=== PATIENT | female | born 1950 | race Caucasian/White ===

== ENCOUNTER → 2017-04-02 | Outpatient (CLI) | payer BC ==
[~2017-04-02] MED LIST: GADAVIST IV PRN
--- NOTE | 2017-04-02 08:54 | DIAGNOSTIC IMAGING REPORT ---
ADDENDUM Addendum: Outside MRI dated 07/21/2013 has been retrieved. The pancreatic head lesion measured 17 mm in maximal diameter on that outside study. IMPRESSION: Interval enlargement in the T2 bright 2.9 cm pancreatic head cystic mass. Imaging characteristics are suggestive of a serous cystadenoma. The mass previously measured 1.7 cm in July 2013. Given the interval growth, if desired, endoscopic ultrasound and biopsy could be obtained in follow-up for tissue confirmation. Electronically signed by: Levy Hermosillo M.D. 04/04/2017 2:20 PM Dictated Date/Time: 04/04/2017 2:15 PM ORIGINAL REPORT MRI ABDOMEN COMBO CLINICAL HISTORY: PANCREATIC CYST TECHNIQUE: Imaging was performed prior to and following IV contrast injection. The patient was injected with 6 cc of intravenous Gadavist COMPARISON STUDY: No previous studies for comparison. FINDINGS: There are 2 T2 bright lesions within the right hepatic lobe, both of which measure 9 mm. These demonstrate nodular peripheral enhancement and likely represent hepatic hemangiomas. There is no intra or extrahepatic biliary ductal dilatation. The common buttock measures 5 mm. No splenic masses are visualized. No gallbladder abnormalities are visualized. There are bilateral T2 bright renal lesions consistent with cysts. Addition there is an 8 mm T2 hypointense lesion which lacks contrast-enhancement. This may represent a proteinaceous cyst. There is a lobulated T2 bright 2.9 cm mass within the pancreatic head. This appears to represent a microcystic lesion with enhancing septa. Given the age of the patient and appearance of this lesion, this likely represents a serous cystadenoma. There is no evidence of abdominal aortic dilatation. There are no adrenal masses. IMPRESSION: 1. Subcentimeter simple and proteinaceous renal cysts 2. Subcentimeter T2 bright hepatic lesions consistent with hemangiomas 3. Lobulated T2 bright 2.9 cm mass in the pancreatic head. This appears microcystic with enhancing septa. This likely represents a serous cystadenoma. By history, the patient has undergone prior imaging at [facility]. Correlation with that report is recommended to exclude interval growth. This institution has requested the patient's prior MRIs. Electronically signed by: Levy eHrmosillo M.D. 04/02/2017 8:53 AM Dictated Date/Time: 04/02/2017 8:33 AM
== END | disposition home or self-care (01) ==
LOC: C.MRI 07:18
PROVIDERS: ATTEND Nurse Practitioner Family
DX: K86.2 Cyst of pancreas (principal)

== ENCOUNTER → 2017-05-05 | Outpatient (CLI) | payer BC | END | disposition home or self-care (01) | LOC: C.MAMM 08:48 | PROVIDERS: ATTEND Nurse Practitioner Family | DX: M81.0 Age-related osteoporosis without current pathological fracture (principal) ==

== ENCOUNTER → 2017-06-24 | Day surgery (SDC) | payer BC ==
[2017-06-19 07:22] VITALS: BMI 23.0
[~2017-06-24] VITALS: Ht 166.4 cm; Wt 63.6 kg
[~2017-06-24] MED LIST changes: +ATOR10TA82 PO; +ATROPINE SULFATE 0.1 MG/ML 5ML SYR IV PRN; +CHOL100010 PO; +CIPROFLOXACIN 400MG / 200ML D5W ONE; +CONJ0.3T3 PO; +DEXAMETHASONE SOD INJ 4 MG/ML VIAL ONE; +EpHEDrine SULFATE INJ 50 MG/ML AMP IV PRN; +FENTANYL CITRATE INJ 50 MCG/1 ML 2 ML VIAL IV PRN; +FENTANYL CITRATE INJ 50 MCG/1 ML 2 ML VIAL ONE; +FLUMAZENIL 0.1 MG/1 ML 10 ML VIAL IV PRN; -GADAVIST IV PRN; +LABETALOL HCL IV 5 MG/ML 20ML IV PRN; +LACTATED RINGER'S 1000ML 1,000 ML IV SCH; +LIDOCAINE HCL 2% 2 ML VIAL (20MG/ML) ONE; +MIDAZOLAM HCL 1 MG/ML 2ML VIAL ONE; +NALOXONE HCL 0.4 MG/1 ML VIAL/CARP IV PRN; +ONDANSETRON INJ 2 MG/ML 2 ML VIAL IV PRN; +ONDANSETRON INJ 2 MG/ML 2 ML VIAL ONE; +PROMETHAZINE HCL INJ 12.5 MG in SODIUM CHLORIDE 0.9% 50ML 50 ML IV PRN; +PROPOFOL IV EMULSION 10 MG/ML 20 ML VIAL IV ONE; +RISE150T PO; +SODIUM CHLORIDE 0.9% 500ML 500 ML IV ONE; +SUCCINYLCHOLINE CHLORIDE 20 MG/ML 10 ML VIAL IV ONE; +ZONI100C39 PO
[2017-06-24 12:42] VITALS: BP 145/65; PULSE 84; TEMP 36.6; O2SAT 98; Ht 166.4 cm; Wt 63.6 kg
[2017-06-24 13:05] LABS: HEMATOCRIT 38.1 % (37-47); MEAN CELL VOLUME 89.4 fL (80-100); MEAN CORPUSCULAR HEMOGLOBIN 30.5 pg (25-34); MEAN PLATELET VOLUME 9.3 fL (7.4-10.4); PLATELET COUNT 295 K/uL (130-400); RED CELL DISTRIBUTION WIDTH SD 42.3 fL (36.4-46.3); WHITE BLOOD COUNT 5.88 K/uL (4.8-10.8)
[2017-06-24 13:10] LABS: MEAN CORPUSCULAR HGB CONC 34.1 g/dl (32-36)
[2017-06-24 13:31] LABS: CREATININE 1.02 mg/dl (0.60-1.20); POTASSIUM 3.5 mmol/L (3.5-5.1)
--- NOTE | 2017-06-24 13:57 | Endo History and Physical ---
History & Physical Date of Service: Jun 24, 2017. Chief Complaint: pancreatic cyst Referring Physician: History of Present Illness pancreatic cyst Past Surgical History Hx Cardiac Surgery: No Hx Abdominal Surgery: Yes (LAPRASCOPY WITH RIGHT- SALPINECTOMY (TUBAL PREG)) Hx Post-Op Nausea and Vomiting: No Hx Cancer Surgery: No Hx Thoracic Surgery: No Hx Orthopedic: Yes (ANKLE FATTY TUMOR REMOVED, RIGHT SHOULDER ARTHROSCOPY) Hx Urinary Tract Surgery: No Social History Smoking Status: Never Smoker Hx Substance Use: No Hx Alcohol Use: Yes (SOCIALLY) Allergies Coded Allergies: No Known Allergies (Unverified , 06/19/17) Current Medications Reported Home Medications Medications Dose Route/Sig Max Daily Dose Days Date Category Actonel (Risedronate Sodium) 150 Mg Tab 150 Mg PO MONTHLY 06/19/17 Reported Vitamin D (Cholecalciferol) 1,000 Unit Tab 1,000 Units PO QAM 06/19/17 Reported Lipitor (Atorvastatin Calcium) 10 Mg Tab 10 Mg PO QPM 06/19/17 Reported Prempro 0.3MG/1.5MG (Estrogens Conj/Medroxyprogest Acet) Tab 1 Tab PO Q2D 06/19/17 Reported Zonegran (Zonisamide) 100 Mg Cap 200 Mg PO BID 06/19/17 Reported Vital Signs Weight (Kilograms): 63.64 Height (Feet): 5 Height (Inches): 5.5 Date Time Temp Pulse Resp B/P (MAP) Pulse Ox O2 Delivery O2 Flow Rate FiO2 06/24/17 12:42 36.6 84 16 145/65 (91) 98 Room Air Physical Exam General Appearance: WD/WN, no apparent distress Respiratory/Chest: Auscultation: breath sounds normal Cardiovascular: Heart Auscultation: RRR Abdomen: Bowel Sounds: normal Inspection & Palpation: soft, non-distended, no tenderness, guarding & rebound Assessment and Plan EUS with FNA as necessary
--- NOTE | 2017-06-24 15:56 | Discharge Instructions ---
Endoscopy Patient Instructions Date / Procedure(s) Performed Jun 24, 2017. Other Allergy Information Coded Allergies: No Known Allergies (Unverified , 06/19/17) Discharge Date / Findings Jun 24, 2017. small GB polyp serous cyst with FNA Medication Instructions Restart Stopped Medication(s): Reported Home Medications Medications Dose Route/Sig Max Daily Dose Days Date Category Actonel (Risedronate Sodium) 150 Mg Tab 150 Mg PO MONTHLY 06/19/17 Reported Vitamin D (Cholecalciferol) 1,000 Unit Tab 1,000 Units PO QAM 06/19/17 Reported Lipitor (Atorvastatin Calcium) 10 Mg Tab 10 Mg PO QPM 06/19/17 Reported Prempro 0.3MG/1.5MG (Estrogens Conj/Medroxyprogest Acet) Tab 1 Tab PO Q2D 06/19/17 Reported Zonegran (Zonisamide) 100 Mg Cap 200 Mg PO BID 06/19/17 Reported Cipro 500mg twice daily for 5 days Reported Home Medications Medications Dose Route/Sig Max Daily Dose Days Date Category Actonel (Risedronate Sodium) 150 Mg Tab 150 Mg PO MONTHLY 06/19/17 Reported Vitamin D (Cholecalciferol) 1,000 Unit Tab 1,000 Units PO QAM 06/19/17 Reported Lipitor (Atorvastatin Calcium) 10 Mg Tab 10 Mg PO QPM 06/19/17 Reported Prempro 0.3MG/1.5MG (Estrogens Conj/Medroxyprogest Acet) Tab 1 Tab PO Q2D 06/19/17 Reported Zonegran (Zonisamide) 100 Mg Cap 200 Mg PO BID 06/19/17 Reported Cipro 500mg twice daily for 5 days Provider Instructions Activity Restrictions - No exercising or heavy lifting for 24 hours. - Do not drink alcohol the day of the procedure. - Do not drive a car or operate machinery until the day after the procedure. - Do not make any important decisions or sign important papers in 24 hours after the procedure. Following Day: - Return to full activity which may include returning to work/school. Diet Start your diet with liquids and light foods (jello, soup, juice, toast). Then eat your usual diet if not nauseated. Treatment For Common After Affects For mild abdominal pain, bloating, or excessive gas: - Rest - Eat lightly - Lie on right side Follow-Up Information Follow-up with as scheduled Anesthesia Information What You Should Know You have had a procedure that required some medicine to reduce anxiety and discomfort. This treatment is called moderate sedation. After receiving the treatment, you may be sleepy, but you will be able to breathe on your own. The effects of the treatment may last for several hours. Follow these instructions along with Activity/Diet recommendations noted above: * Do NOT do anything where dizziness or clumsiness would be dangerous. * Rest quietly at home today, then you can be up and about tomorrow. * Have a responsible person stay with you the rest of today. * You may have had an I.V. today. If so, you may take the dressing off later today. Recommendations Call your doctor if: * Trouble breathing * Continuous vomiting for more than 24 hours * Temperature above 101 degrees * Severe abdominal pain or bloating * Pain not relieved by pain medicine ordered * There is increased drainage or redness from any incision * A large amount of rectal bleeding greater than 2-3 tablespoons. (If you had a polyp/s removed or have hemorrhoids, a small amount of blood - from the rectum is to be expected.) * You have any unanswered questions or concerns. IN THE EVENT OF A SERIOUS EMERGENCY, GO TO THE NEAREST EMERGENCY ROOM Your discharge instructions were prepared by provider Chidi Bailey. Patient Instructions Signature Page Mita Méndez Patient (or Guardian) Signature/Date: I have read and understand the instructions given to me by my caregivers. Caregiver/RN/Doctor Signature/Date: The above-named patient and/or guardian has received patient instructions on this date. + Original Patient Signature Page (only) stays with chart. Please make copy for patient.
[2017-06-24 16:35] VITALS: BP 133/63; PULSE 71; TEMP 36.5; O2SAT 100
--- NOTE | 2017-06-24 16:45 | GI REPORT ---
Procedure Date: 06/24/2017 2:14 PM Procedure: Upper EUS Indications: Pancreatic cyst on MRI, prior hx of serous cyst adenoma. Increase in size on recent imaging Medicines: General Anesthesia Complications: No immediate complications. Estimated blood loss: Minimal. Estimated Blood Loss: Estimated blood loss was minimal. Estimated blood loss was minimal. Procedure: Pre-Anesthesia Assessment: - Prior to the procedure, a History and Physical was performed, and patient medications and allergies were reviewed. The patient's tolerance of previous anesthesia was also reviewed. The risks and benefits of the procedure and the sedation options and risks were discussed with the patient. All questions were answered, and informed consent was obtained. Prior Anticoagulants: The patient has taken no previous anticoagulant or antiplatelet agents. ASA Grade Assessment: II - A patient with mild systemic disease. After reviewing the risks and benefits, the patient was deemed in satisfactory condition to undergo the procedure. After obtaining informed consent, the endoscope was passed under direct vision. Throughout the procedure, the patient's blood pressure, pulse, and oxygen saturations were monitored continuously. The Endosonoscope was introduced through the mouth, and advanced to the duodenum for ultrasound examination from the esophagus, stomach and duodenum. The upper EUS was accomplished without difficulty. The patient tolerated the procedure well. Findings: Endoscopic Finding : The examined esophagus was normal. The entire examined stomach was normal. The examined duodenum was normal. The ampulla was normal. Endosonographic Finding : The esophagus, stomach and duodenum and adjacent structures were visualized endosonographically. There was no sign of significant endosonographic abnormality in the esophagus. No pathologic lymphadenopathy was identified. Endosonographic images of the stomach were unremarkable. No pathologic lymphadenopathy was identified. Endosonographic images of the stomach were unremarkable. No pathologic lymphadenopathy was identified. There was no sign of significant endosonographic abnormality in the ampulla. No pathologic lymphadenopathy was identified. A hyperechoic and homogenous polyp was identified endosonographically in the gallbladder body. Endosonographic imaging in the common bile duct and in the gallbladder showed no stones. There was no sign of significant endosonographic abnormality in the visualized portion of the liver. Homogeneous parenchyma, no focal pathology and no pathologic lymphadenopathy were identified. An anechoic, multicystic and distally enhancing lesion suggestive of a cyst was identified in the pancreatic head. It is not in obvious communication with the pancreatic duct. The lesion measured 20 mm by 28 mm in maximal cross-sectional diameter. Within lesion 2 simple cysts with mural defects, the largest is 5-6 mm was identified and a needle placed. Simple needle placement promptly decompressed the cyst with not fluid obtained with suction.There were many compartments. There was no internal debris within the fluid-filled cavity. Fine needle aspiration for cytology was performed of the lesion. Color Doppler imaging was utilized prior to needle puncture to confirm a lack of significant vascular structures within the needle path. Six passes were made with the 22 gauge needle using a transduodenal approach. A stylet was used. A blood bank laboratory professional was present to evaluate the adequacy of the specimen. The cellularity of the specimen was adequate. Final cytology results are pending. No lymphadenopathy seen. There was no sign of significant endosonographic abnormality in the visualized portion of the spleen. No focal pathology was identified. There was no sign of significant endosonographic abnormality in the entire examined left kidney. No focal pathology was identified. Impression: - Normal esophagus. - Normal stomach. - Normal examined duodenum. - Normal ampulla. - There was no sign of significant pathology in the esophagus. - Endosonographic images of the stomach were unremarkable. - There was no sign of significant pathology in the ampulla. - A polyp was found in the gallbladder body. Resection not attempted. - There was no evidence of significant pathology in the visualized portion of the liver. - A cystic lesion was seen in the pancreatic head. Fine needle aspiration performed. This was complex with small cystic areas. - Endosonographic images of the spleen were unremarkable. - Endosonographic images of the left kidney were unremarkable. Recommendation: - Discharge patient to home (ambulatory). - Advance diet as tolerated. - Continue present medications. - Cipro (ciprofloxacin) 500 mg PO BID for 5 days. - Await cytology results. Fluid was not obtained for analysis. - Return to GI clinic as previously scheduled. - Return to referring physician as previously scheduled. MD Chidi Roberts MD 06/24/2017 4:44:42 PM This report has been signed electronically. Note Initiated On: 06/24/2017 2:14 PM I attest to the content of the Intraoperative Record and orders documented therein, exceptions below
--- NOTE | 2017-06-24 16:45 | Anesthesiology Progress Note ---
Anesthesia Post Op Note Date & Time Jun 24, 2017 at 16:45 Vital Signs Pain Intensity: 0 Vital Signs Past 12 Hours Date Time Temp Pulse Resp B/P (MAP) Pulse Ox O2 Delivery O2 Flow Rate FiO2 06/24/17 16:27 70 20 99 06/24/17 16:27 68 20 06/24/17 16:25 36.4 06/24/17 16:25 126/66 06/24/17 16:20 131/70 06/24/17 16:17 63 13 06/24/17 16:17 63 13 99 06/24/17 16:16 67 16 06/24/17 16:16 65 16 119/66 100 06/24/17 16:11 64 14 06/24/17 16:11 64 14 100 06/24/17 16:10 133/68 06/24/17 16:06 73 16 100 06/24/17 16:06 71 16 06/24/17 16:05 124/78 06/24/17 16:01 61 16 100 06/24/17 16:01 61 16 06/24/17 16:00 124/63 06/24/17 15:56 67 15 100 06/24/17 15:56 69 15 06/24/17 15:55 121/63 06/24/17 15:52 127/68 06/24/17 15:51 66 17 100 06/24/17 15:51 88 17 100 06/24/17 15:51 36.0 67 17 127/68 100 Oxymask 10 06/24/17 12:42 36.6 84 16 145/65 (91) 98 Room Air Notes Mental Status: alert / awake / arousable, participated in evaluation Pt Amnestic to Procedure: Yes Nausea / Vomiting: adequately controlled Pain: adequately controlled Airway Patency, RR, SpO2: stable & adequate BP & HR: stable & adequate Hydration State: stable & adequate Anesthetic Complications: no major complications apparent
[2017-06-24 17:05] VITALS: BP 134/65; PULSE 67; TEMP 36.5; O2SAT 100
== END | disposition home or self-care (01) ==
LOC: C.ACU 12:21
PROVIDERS: ATTEND Internal Medicine Gastroenterology
DX: K86.2 Cyst of pancreas (principal); Z98.890 Other specified postprocedural states; E78.5 Hyperlipidemia, unspecified; Z86.69 Personal history of other diseases of the nervous system and sense organs

== ENCOUNTER → 2017-09-04 | Outpatient (CLI) | payer BC ==
[~2017-09-04] MED LIST changes: -ATROPINE SULFATE 0.1 MG/ML 5ML SYR IV PRN; -CIPROFLOXACIN 400MG / 200ML D5W ONE; -DEXAMETHASONE SOD INJ 4 MG/ML VIAL ONE; -EpHEDrine SULFATE INJ 50 MG/ML AMP IV PRN; -FENTANYL CITRATE INJ 50 MCG/1 ML 2 ML VIAL IV PRN; -FENTANYL CITRATE INJ 50 MCG/1 ML 2 ML VIAL ONE; -FLUMAZENIL 0.1 MG/1 ML 10 ML VIAL IV PRN; +GADAVIST IV PRN; -LABETALOL HCL IV 5 MG/ML 20ML IV PRN; -LACTATED RINGER'S 1000ML 1,000 ML IV SCH; -LIDOCAINE HCL 2% 2 ML VIAL (20MG/ML) ONE; -MIDAZOLAM HCL 1 MG/ML 2ML VIAL ONE; -NALOXONE HCL 0.4 MG/1 ML VIAL/CARP IV PRN; -ONDANSETRON INJ 2 MG/ML 2 ML VIAL IV PRN; -ONDANSETRON INJ 2 MG/ML 2 ML VIAL ONE; -PROMETHAZINE HCL INJ 12.5 MG in SODIUM CHLORIDE 0.9% 50ML 50 ML IV PRN; -PROPOFOL IV EMULSION 10 MG/ML 20 ML VIAL IV ONE; -SODIUM CHLORIDE 0.9% 500ML 500 ML IV ONE; -SUCCINYLCHOLINE CHLORIDE 20 MG/ML 10 ML VIAL IV ONE
--- NOTE | 2017-09-04 11:00 | DIAGNOSTIC IMAGING REPORT ---
MRI OF THE ABDOMEN COMBO CLINICAL HISTORY: Follow-up pancreatic cyst.. COMPARISON STUDY: MRI of the abdomen dated 04/02/2017 and 07/21/2013. Abdominal CT dated 01/25/2012. TECHNIQUE: MRI of the abdomen is performed transverse T1 and T2-weighted sequences in the axial and coronal planes. Contrast enhanced sequences were acquired following the IV administration of 6.5 cc of Gadavist. Subtraction imaging was performed. MRCP images are obtained with associated MIPS images. FINDINGS: Lower chest: No pleural effusion is identified. The heart is normal in size and without pericardial effusion. Liver: The liver is normal in size, contour, and signal intensity. No intrahepatic biliary ductal dilatation is seen. The hepatic veins and portal veins are patent. Again seen are three T2 hyperintense hepatic lesions (axial FIESTA images #6, #11, and #14) measuring up to 10 mm. These demonstrate tiny foci of peripheral nodular enhancement and likely represent hemangiomas. Gallbladder/MRCP: The gallbladder is normal in appearance. No gallstones are identified. The common bile duct is normal in caliber, measuring up to 4 mm. There is no evidence of choledocholithiasis. The pancreatic duct is normal in appearance. Spleen: Normal in size and signal intensity. Pancreas: Again seen is a 2.6 cm lobulated cystic lesion in the pancreatic head on axial fast image #16. This demonstrates thin internal enhancing septations, and the appearance is most typical for a serous cystadenoma. The pancreas is otherwise normal in appearance. Adrenal glands: Unremarkable. Kidneys: The kidneys are normal in size and without hydronephrosis. The kidneys enhance and excrete symmetrically. 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 Subcentimeter cysts are noted in both kidneys. Abdominal aorta: Normal in course and caliber. Bowel: Visualized portions of the small bowel and colon show no evidence of obstruction. Fecal retention is noted in the colon. Peritoneum: There is no abdominal ascites. Lymphadenopathy: None. Skeletal structures: Visualized skeletal structures times are normal marrow signal intensity. IMPRESSION: 1. There has been no significant change in the appearance of a 2.6 cm thinly septated cystic lesion in the pancreatic head as compared to 04/02/2017. The appearance remains most typical for a serous cystadenoma. If definitive characterization is desired then endoscopic ultrasound and biopsy would be required. 2. Three small hepatic lesions measuring up to 10 mm are unchanged and typical in appearance for small hemangiomas. 3. Moderate colonic fecal retention. 4. 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 Electronically signed by: Jordi Isabel M.D. 09/04/2017 10:59 AM Dictated Date/Time: 09/04/2017 10:48 AM
== END ==
LOC: C.MRI 09:27
PROVIDERS: ATTEND Internal Medicine Gastroenterology
DX: K86.2 Cyst of pancreas (principal); D17.71 Benign lipomatous neoplasm of kidney

== ENCOUNTER → 2017-09-08 | Outpatient (CLI) | payer BC ==
[~2017-09-08] MED LIST changes: -GADAVIST IV PRN
--- NOTE | 2017-09-09 07:47 | MAMMOGRAPHY REPORT ---
BILATERAL DIGITAL SCREENING MAMMOGRAM TOMOSYNTHESIS WITH CAD: 09/08/2017 CLINICAL HISTORY: Routine screening. Patient has no complaints. TECHNIQUE: Breast tomosynthesis in addition to standard 2D mammography was performed. Current study was also evaluated with a Computer Aided Detection (CAD) system. COMPARISON: Comparison is made to exams dated: 09/05/2016 mammogram, 08/01/2014 mammogram, 04/14/2014 m ammogram, 03/22/2014 mammogram, and 01/26/2013 mammogram. BREAST COMPOSITION: The tissue of both breasts is heterogeneously dense, which may obscure small mas ses. FINDINGS: There are diffuse scattered and grouped benign-appearing punctate microcalcifications. The glandular pattern is similar to prior outside mammograms. No obvious new mass, architectural distor tion or cluster of suspicious microcalcifications is seen. IMPRESSION: ACR BI-RADS CATEGORY 1: NEGATIVE There is no mammographic evidence of malignancy. A 1 year screening mammogram is recommended. The pa tient will receive written notification of the results. Approximately 10% of breast cancers are not detected with mammography. A negative mammographic report should not delay biopsy if a clinically suggestive mass is present. Diana Henriquez M.D. ay/:09/08/2017 20:45:05 Intranet Developer: Wendi Mcadams, [facility] letter sent: Normal 1/2 BI-RADS Code: ACR BI-RADS Category 1: Negative
== END | disposition home or self-care (01) ==
LOC: C.MAMM 14:26
PROVIDERS: ATTEND Obstetrics & Gynecology
DX: Z12.31 Encounter for screening mammogram for malignant neoplasm of breast (principal)